=== PATIENT | female | born 1980 | race Caucasian/White ===

== ENCOUNTER 2016-07-31 16:29 | Emergency (ER) | payer OTHER ==
[~2016-07-31] VITALS: Ht 168.9 cm; Wt 102.3 kg
[2016-07-31 16:32] VITALS: BP 125/92; PULSE 96; RESP 15; O2SAT 100
[2016-07-31 16:54] VITALS: BP 118/90; PULSE 90; RESP 20; O2SAT 97
--- NOTE | 2016-07-31 17:10 | ED.REPORT ---
HPI-Rash / Abscess Date of Service Jul 31, 2016 ED Provider: History of Present Illness: hives on face started the first of the month . took prednisone 20 mg daily for 5days. REturned this week. no meds this time. no hx of hives previously. was exposed to scabies on , hugged the person. primary care is [facility]. no lisinopril, has exczema, recently returned from [place] and [place]. skin is much worse. use aveno lotion. using flonase and krissy 180 milligrams Nursing Notes Stated Complaint: POSS ALLERGIC REACTION Chief Complaint: Allergic Reaction Nursing Notes Reviewed: Yes Allergies: Coded Allergies: clindamycin (Verified Allergy, Intermediate, throat is on fire, 07/31/16) trazodone (Verified Allergy, Unknown, 07/31/16) General Time Seen by MD: 17:09 Chief Complaint Rash Hx Obtained From: Patient Onset Occurred: 4 days ago Location: : Head/face Past Medical History Past Medical History exczema Denies: Asthma, Diabetes mellitus Past Surgical History teeth removed, C-2 fracture with halo at 20 yers old Reports: Smoking History Current Every Day Smoker (3 cigs a day for 15 years) Social History Alcohol Use: Denies alcohol use Drug Use: THC Other Social History: Occupation no work or school 07/31/2016 Ambulatory Status Independent Review of Systems Basic Review of Systems : No dysuria, No frequency Psychiatric: Normal thought content Physical Exam Initial Vital Signs Vital Signs (First) Date Time Temp Pulse Resp B/P Pulse Ox O2 Delivery O2 Flow Rate FiO2 07/31/16 16:32 36.2 96 15 125/92 100 07/31/16 16:54 Room Air Initial VS: Reviewed, Vital signs normal Head / Eyes: Atraumatic, Normocephalic, PERRL ENT: Mucous membranes moist, Conjunctiva normal, No scleral icterus Neck: Supple, Non-tender, Full range of motion Respiratory: Breath sounds normal, Clear to auscultation, No respiratory distress Cardiovascular: Regular rate & rhythm, Heart sounds normal, Intact distal pulses Abdomen / GI: Soft, Non-tender, No guarding, No rebound, No distention Back: No CVA tenderness Lymphatic: No lymphadenopathy Extremities: Vascular intact, Neuro intact, No swelling, No tenderness Neurologic: Alert, Oriented, Nonfocal Psychiatric: Mood/affect normal, Behavior normal, Normal thought content General/Constitutional: Awake, Alert, No acute distress, Well appearing, Well developed, Well hydrated, Well nourished, Cooperative, Not toxic appearing Rash / Lesion Notes: face with chronic exczema, patient reaches for face and scratches multiple times during hx taking. Exam also indicates excoration on upper back /shoulders with scatered pick sores. none infected Rash / Lesion Location: Positive: Face eyelids have clear sign of skin thickening Respiratory / Chest: Atraumatic, Breath sounds NL, Breath sounds = bilat, No respiratory distress Cardiovascular: Heart rate NL, Regular rhythm, Heart sounds NL, No gallop Re-Eval/Medical Decision Med Decision/Clinical Course 35 year old female presents with ongoing rash on face. Rash is chronic exczema, patient continues to itch. Discussed with patient the importance of avoiding itching. no sign of impetigo or tinea Discharge & Departure Impression: Primary Impression: Moderate eczema Disposition: Home Patient Instructions: Atopic Dermatitis (ED) Additional Instructions: You have fairly significant exczema on your entire face. NEED to stop itching. Use doxepin 10 mg at night to help stop itching. Wear soft socks over your hands and put tape around the wrist area but over the socks so you can not pull them off. Use zyrtec to see if that doesn't help better with allergy control. Use prednisone, 30 mg daily for 2 days, then 20 mg daily for 2 days, then 10 mg daily for 2 days then 5 mg daily for 2 days. Use protopic to the face in the am and pm for 10 days. Then apply as needed. Use short term and smallest amount of medication as needed. Referrals: Ijeoma Casanova MD EDSupervising Provider for APC: Colton Mansfield MD copies to: Ijeoma Casanova MD, Sue ARNP Jul 31, 2016 17:10
[2016-07-31] MEDS ORDERED: Ketorolac 30 mg/mL 2 mL Inj IM ONE (17:35)
[2016-07-31 18:08] VITALS: BP 117/71; PULSE 88; RESP 16; O2SAT 98
[2016-07-31 18:12] VITALS: BP 117/71; PULSE 88; RESP 16; O2SAT 98
== END 2016-07-31 18:13 | disposition home or self-care (01) ==
LOC: SED 16:29
DX: L30.9 Dermatitis, unspecified (principal); F17.210 Nicotine dependence, cigarettes, uncomplicated; Z87.828 Personal history of other (healed) physical injury and trauma; Z88.1 Allergy status to other antibiotic agents; Z88.8 Allergy status to other drugs, medicaments and biological substances
CPT/HCPCS: 93005; 96372; 99284; J1885